=== PATIENT | female | born 1990 | race Caucasian/White ===

== ENCOUNTER → 2019-09-21 | Outpatient (REF) | payer OTHER ==
[2019-09-22 15:30] LABS: CHLAMYDIA DNA AMPLIFICATION NEGATIVE (NEGATIVE); GC DNA AMPLIFICATION NEGATIVE (NEGATIVE)
== END ==
LOC: M LAB REF 12:44
PROVIDERS: ATTEND Physician Assistant
DX: B37.3 Candidiasis of vulva and vagina (principal)

== ENCOUNTER 2019-09-26 19:20 | Emergency (ER) | payer OTHER, SELFPAY ==
[~2019-09-26] VITALS: Ht 167.6 cm; Wt 65.7 kg
[2019-09-26 19:21] VITALS: BP 133/83
== END 2019-09-26 21:37 | disposition left against medical advice (07) ==
LOC: M ED 19:20
DX: Z53.21 Procedure and treatment not carried out due to patient leaving prior to being seen by health care provider (principal)